=== PATIENT | male | born 1950 | race Caucasian/White ===

== ENCOUNTER → 2020-08-03 | Outpatient (CLI) | payer MEDICARE ==
[~2020-08-03] MED LIST: RT-ALBUTEROL SULF 2.5 MG/3 ML PRE-MIX VIAL IH ONE
== END ==
LOC: RT 13:00
PROVIDERS: ATTEND Nurse Practitioner Family
DX: J43.2 Centrilobular emphysema (principal)
CPT/HCPCS: 94060; 94726; 94729